=== PATIENT | male | born 1995 | race Hispanic/Latino ===

== ENCOUNTER 2016-10-23 21:33 | Emergency (ER) | payer OTHER ==
[2016-10-23 21:47] VITALS: BP 150/76; PULSE 94; RESP 16; TEMP 98.2; O2SAT 98
--- NOTE | 2016-10-23 21:56 | ED PDOC ---
HPI: Dental Pain/Injury Time Seen by Provider: 10/23/16 21:53 Chief Complaint (Nursing): Dental Pain Chief Complaint (Provider): Left-Sided Dental Pain/Swelling History Per: Patient History/Exam Limitations: no limitations Onset/Duration Of Symptoms: Days (x1) Current Symptoms Are (Timing): Still Present Additional Complaint(s): Gilberto Dunham is a 21 year old male that presents to the ED with a chief complaint of left upper tooth pain that he first began experiencing yesterday. Patient states that he felt pain earlier today, but that he took Tylenol with relief. Patient now has facial swelling and is concerned about infection. He is tolerating liquids and solids and denies fever or chills. Past Medical History Reviewed: Historical Data, Nursing Documentation, Vital Signs Vital Signs: Last Vital Signs Temp 98.2 F 10/23/16 21:42 Pulse 94 H 10/23/16 21:42 Resp 16 10/23/16 21:42 BP 150/76 10/23/16 21:42 Pulse Ox 98 10/23/16 21:42 - Medical History PMH: No Chronic Diseases - Surgical History Surgical History: Cholecystectomy, Tonsillectomy (and adenoidectomy) - Family History Family History: States: No Known Family Hx - Living Arrangements Living Arrangements: With Family - Social History Current smoker - smoking cessation education provided: No Alcohol: None Drugs: Denies - Home Medications Home Medications: Ambulatory Orders Medication Instructions Recorded Clindamycin [Cleocin] 300 mg PO TID #21 cap 10/23/16 - Allergies Allergies/Adverse Reactions: Allergies Allergy/AdvReac Type Severity Reaction Status Date / Time No Known Allergies Allergy Verified 11/12/13 20:11 Review of Systems ROS Statement: Except As Marked, All Systems Reviewed And Found Negative ENT: Positive for: Mouth Pain (left upper tooth pain/swelling) Gastrointestinal: Negative for: Vomiting Neurological: Negative for: Headache, Dizziness Physical Exam - Reviewed Nursing Documentation Reviewed: Yes Vital Signs Reviewed: Yes - Physical Exam Appears: Positive for: Non-toxic, No Acute Distress Head Exam: Positive for: ATRAUMATIC, NORMOCEPHALIC Skin: Positive for: Normal Color, Warm Eye Exam: Positive for: Normal appearance, EOMI, PERRL ENT: Positive for: Other (Diffuse tenderness to left upper mandible molar teeth with ginvigal erythema, left side facial swelling noted suspicious for abscess, airway patent, uvula midline) Neck: Positive for: Normal Cardiovascular/Chest: Positive for: Regular Rate, Rhythm Respiratory: Positive for: Normal Breath Sounds Neurologic/Psych: Positive for: Alert, Oriented. Negative for: Motor/Sensory Deficits - ECG O2 Sat by Pulse Oximetry: 98 (RA) Pulse Ox Interpretation: Normal Medical Decision Making Medical Decision Making: Impression: Toothache with Dental Abscess Plan: * Clindamycin 300 mg PO Patient given Rx for Clindamycin and advised to follow up with dentist for further workup of abscess. Advised NSAID's prn pain. Scribe Attestation: Documented by Anastasiya Mauro, acting as a scribe for Lorelei Ochoa PA-C. Provider Scribe Attestation: All medical record entries made by the Scribe were at my direction and personally dictated by me. I have reviewed the chart and agree that the record accurately reflects my personal performance of the history, physical exam, medical decision making, and the department course for this patient. I have also personally directed, reviewed, and agree with the discharge instructions and disposition. Disposition - Clinical Impression Clinical Impression: Tooth ache, Dental abscess - Patient ED Disposition Is Patient to be Admitted: No Counseled Patient/Family Regarding: Diagnosis, Need For Followup, Rx Given - Disposition Referrals: [facility] [Outside] Disposition: Routine/Home Disposition Time: 22:18 Condition: STABLE Additional Instructions: Take rx meds as directed. Tylenol or advil for pain as needed. Follow up with dentist CRISTIAN. Prescriptions: Clindamycin [Cleocin] 300 mg PO TID #21 cap Instructions: Dental Abscess (ED), Toothache (ED) Forms: [employer] (American)
== END 2016-10-23 22:54 | disposition home or self-care (01) ==
LOC: H.ER 21:33
DX: K04.7 Periapical abscess without sinus (principal)